=== PATIENT | female | born 1970 | race Caucasian/White ===

== ENCOUNTER → 2022-08-14 | Outpatient (CLI) | payer OTHER ==
[~2022-08-14] MED LIST: GABA300 PO
[2022-08-14 17:14] LABS: Source, Urine Clean Catch
[2022-08-14 18:40] LABS: Bilirubin, Urine Neg (Neg); Blood, Urine 5+ (Neg); Color, Urine Yellow (P-Yellow); Glucose Qualitative, Urine Neg (Neg); Ketones, Urine Neg (Neg); Leukocyte Esterase, Urine 2+ (Neg); Nitrite, Urine Neg (Neg); Protein, Urine 3+ (Neg); Urobilinogen, Urine NORM (Normal)
[2022-08-14 19:08] LABS: Appearance, Urine Hazy (Clear)
[2022-08-14 19:09] LABS: Bacteria Mod /hpf; Hyaline Casts 0-2 /lpf (0-2); Red Blood Cells, Urine 25-50 /hpf (0-2); Squamous Epithelial Cells Few /hpf (Few); White Blood Cells, Urine 25-50 /hpf (0-5)
== END | disposition home or self-care (01) ==
LOC: LAB 17:12 → LAB SHORT 17:12
PROVIDERS: Registered Nurse
DX: N39.0 Urinary tract infection, site not specified (principal); R30.0 Dysuria
CPT/HCPCS: 81001; 87077; 87086; 87147; 87186

== ENCOUNTER → 2023-09-24 | Outpatient (CLI) | payer OTHER | LOC: LAB 08:43 → LAB SHORT 08:43 | DX: M67.441 Ganglion, right hand (principal); M65.311 Trigger thumb, right thumb | CPT/HCPCS: 88304 ==